=== PATIENT | female | born 1970 | race Two or more races ===

== ENCOUNTER 2021-06-26 11:39 | Emergency (ER) | payer MEDICAID, OTHER ==
[~2021-06-26] VITALS: Ht 160 cm; Wt 94.8 kg
--- NOTE | 2021-06-26 12:32 | NUR ---
BIBS SENT BY HER ONCOLOGIST. TO ER BED 6. AAOX4. NOT IN RESP DISTRESS. AMBULATORY. COMING IN FOR R ARM SWEELING, REDNESS AND PAIN SINCE TUESDAY. PAIN IS RATED 10/10 W/ LIMITED ROM D/T PAIN. PT HAD A PICC LINE WHICH WAS ALREADY REMOVED BECAUSE PT IS DOING CHEMO THERAPY. AWAITING MD FOR EVAL.
[2021-06-26 13:32] LABS: BASOPHILS % (AUTO) 0.6 % (0.0-2.0); EOSINOPHILS % (AUTO) 0.1 % (0.0-6.0); HEMATOCRIT 30 % (33-45); HEMOGLOBIN 9.7 g/dL (11.5-14.8); LYMPHOCYTES # (AUTO) 1.1 K/uL (0.8-4.8); MEAN CORPUSCULAR HGB CONC 32 g/dl (31.0-36.0); MEAN CORPUSCULAR VOLUME 78 fL (82-100); MONOCYTES % (AUTO) 0.5 % (2.0-12.0); NEUTROPHILS # (AUTO) 7.1 K/uL (1.8-8.9); NEUTROPHILS % (AUTO) 85.8 % (43.0-81.0); PLATELET COUNT (AUTO) 479 K/uL (150-450); RED BLOOD CELL COUNT(AUTO) 3.91 MIL/uL (4.0-5.2); WHITE BLOOD COUNT (AUTO) 8.3 K/uL (4.3-11.0)
[2021-06-26 13:39] LABS: CARBON DIOXIDE 27 mmol/L (21-32); CHLORIDE 105 mmol/L (98-107); CREATININE 0.5 mg/dL (0.6-1.3); GLUCOSE 100 mg/dL (74-106); POTASSIUM 3.8 mmol/L (3.5-5.1); SODIUM SERUM 142 mmol/L (136-145); UREA NITROGEN, BLOOD 15 mg/dL (7-18)
[2021-06-26 13:44] LABS: ALANINE AMINOTRANSFERASE 24 U/L (12-78); ALKALINE PHOSPHATASE 50 U/L (46-116); ASPARTATE AMINOTRANSFERASE 13 U/L (15-37); BILIRUBIN,DIRECT 0.1 mg/dL (0.0-0.2); BILIRUBIN,TOTAL 0.1 mg/dL (0.2-1.0); TOTAL PROTEIN, SERUM 6.7 g/dL (6.4-8.2)
[2021-06-26] MEDS ORDERED: HEPARIN INFUSION/D5W 500 ML IV PRN (14:00)
[2021-06-26] MEDS ORDERED: VANCOMYCIN 1 GM VIAL ONE (14:26)
[2021-06-26] MEDS ORDERED: VANCOMYCIN HCL 1 GM in IV D5W 260 ML IV ONE (14:30)
[2021-06-26] MEDS ORDERED: HEPARIN INFUSION/D5W 500 ML IV ONE (14:38)
[2021-06-26] MEDS ORDERED: HEPARIN SODIUM, PORCINE 5000 UNITS/1 ML VIAL ONE (14:38)
--- NOTE | 2021-06-26 14:46 | NUR ---
HEPARIN BOLUS ORDERED BY . ORDERD HEPARIN 7200 UNITS BOLUS AND CONTINOUS INFUSION OF 1600 UNITS/HR.
[2021-06-26] MEDS ORDERED: OMEP20CA15 PO (14:50)
[2021-06-26] MEDS ORDERED: DOCU100C36 PO (14:50)
[2021-06-26] MEDS ORDERED: DEXA4TAB PO (14:50)
[2021-06-26] MEDS ORDERED: HYDR-3972 PO (14:50)
[2021-06-26] MEDS ORDERED: HEPARIN SODIUM, PORCINE 5000 UNITS/1 ML VIAL IV ONE (15:00)
--- NOTE | 2021-06-26 15:05 | NUR ---
JEAN FIELD SALES REPRESENTATIVE FROM [facility] WORKING TO TRANSFER THE PATIENT TO [facility]. THE PATIENT IS OK WITH THE TRANSFER JEAN TEL [phone] FAX [phone] TO CLINICALS WITH ER MD TENORIO NOTE. PRIMARY NURSE MADE AWARE
--- NOTE | 2021-06-26 15:41 | NUR ---
COVID SWAB DONE AND SENT TO THE LAB
--- NOTE | 2021-06-26 16:09 | NUR ---
abbey, sister [phone]
--- NOTE | 2021-06-26 16:42 | NUR ---
called case finisher to follow up regarding transfer. Cheri Dunham
--- NOTE | 2021-06-26 16:43 | NUR ---
CALLED TO UPDATE CM JEAN FOR POSITIVE COVID RESULT. NEEDS UPDATED RESULT FAXED.
--- NOTE | 2021-06-26 17:00 | NUR ---
COVID RESULT FAXED.
--- NOTE | 2021-06-26 17:46 | NUR ---
BLANCA PENA CALLED FROM [facility] TO GIVE TRANSFER INFORMATION. PT ACCEPTED TO [facility] ER ROOM [address] UNDER THE CARE OF DR. CHERY. NUMBER FOR REPORT [phone]. ETA [phone] WITH [facility].
--- NOTE | 2021-06-26 18:38 | NUR ---
CALLED TO GIVE REPROT. ADVICED TO CALL BACK AFTER SHIFT D/T END OF SHIFT CHANGE.
[2021-06-26 19:11] VITALS: BP 115/68
--- NOTE | 2021-06-26 19:23 | NUR ---
REPORT GIVEN TO KRYSTAL GALVAN FOR [place] AT THE [facility]
--- NOTE | 2021-06-26 19:27 | NUR ---
[facility] AT BEDSIDE FOR PT TRANSPORT TO [facility] IN STABLE CONDITION. PT AMBULATED FROM BED TO [facility] ON [facility]. REPORT WAS GIVEN.
--- NOTE | 2021-06-26 19:30 | NUR ---
PT LEFT ON GURNEY WITH 2 EMT AT BEDSIDE ON STABLE CONDITION.
== END 2021-06-26 19:30 | disposition short-term general hospital (02) ==
LOC: ER 11:43
DX: I82.621 Acute embolism and thrombosis of deep veins of right upper extremity (principal); U07.1 COVID-19; I82.890 Acute embolism and thrombosis of other specified veins; C55 Malignant neoplasm of uterus, part unspecified; Z88.0 Allergy status to penicillin; Z79.899 Other long term (current) drug therapy; I51.7 Cardiomegaly
CPT/HCPCS: 36415; 71045; 80048; 80076; 83605; 84484; 85025; 85730; 87040 ×2; 87426; 93005; 93971; 96365; 96375; 96376; 99285; C9803; J1644 ×2; J3370; J7060

== ENCOUNTER 2022-10-06 12:40 | Inpatient (IN) | payer MEDICAID, OTHER ==
[~2022-10-06] VITALS: Ht 160 cm; Wt 90.3 kg
[~2022-10-06 12:40] MED LIST: DEXA4TAB PO; DOCU100C36 PO; HYDR-3972 PO; OMEP20CA15 PO
--- NOTE | 2022-10-06 12:50 | NUR ---
JENNIFER RA 77 FROM HOME,C/O CONSTIPATION
--- NOTE | 2022-10-06 12:59 | NUR ---
PT SEEN BY DR SANTOYO AT BEDSIDE
[2022-10-06] MEDS ORDERED: IV NS 0.9% 1,000 ML BAG IV ONE (13:00)
[2022-10-06] MEDS ORDERED: MORPHINE SULFATE INJ 2 MG/ML DISP.SYRIN IV ONE (13:00)
--- NOTE | 2022-10-06 13:00 | NUR ---
established iv line 20g left ac infusing
[2022-10-06] MEDS ORDERED: MORPHINE SULFATE INJ 4 MG/ML DISP.SYRIN ONE (13:06)
[2022-10-06] MEDS ORDERED: ONDANSETRON HCL/PF 4 MG/2 ML VIAL ONE (13:10)
--- NOTE | 2022-10-06 13:15 | NUR ---
medicated as ordered
[2022-10-06] MEDS ORDERED: IOHEXOL-350 100 ML VIAL IV ONE (13:22)
[2022-10-06] MEDS ORDERED: IV NS 0.9% 250 ML IV ONE (13:22)
[2022-10-06 13:29] LABS: BASOPHILS % (AUTO) 0.1 % (0.0-2.0); EOSINOPHILS % (AUTO) 0.3 % (0.0-6.0); HEMATOCRIT 38 % (33-45); HEMOGLOBIN 12.1 g/dL (11.5-14.8); LYMPHOCYTES # (AUTO) 0.6 K/uL (0.8-4.8); LYMPHOCYTES % (AUTO) 10.4 % (20.0-44.0); MEAN CORPUSCULAR HGB CONC 32 g/dl (31.0-36.0); MEAN CORPUSCULAR VOLUME 87 fL (82-100); MONOCYTES # (AUTO) 0.3 K/uL (0.1-1.30); MONOCYTES % (AUTO) 5.8 % (2.0-12.0); NEUTROPHILS % (AUTO) 83.4 % (43.0-81.0); PLATELET COUNT (AUTO) 224 K/uL (150-450); RED BLOOD CELL COUNT(AUTO) 4.34 MIL/uL (4.0-5.2)
[2022-10-06] MEDS ORDERED: ONDANSETRON HCL/PF - ER 4 MG/2 ML VIAL IV ONE (13:30)
[2022-10-06 13:53] LABS: ALANINE AMINOTRANSFERASE 38 U/L (12-78); ALKALINE PHOSPHATASE 120 U/L (46-116); ASPARTATE AMINOTRANSFERASE 53 U/L (15-37); BILIRUBIN,DIRECT 0.2 mg/dL (0.0-0.2); BILIRUBIN,TOTAL 0.6 mg/dL (0.2-1.0); CALCIUM, SERUM 9.6 mg/dL (8.5-10.1); CARBON DIOXIDE 31 mmol/L (21-32); CHLORIDE 90 mmol/L (98-107); GLUCOSE 111 mg/dL (74-106); LIPASE 186 U/L (73-393); POTASSIUM 3.6 mmol/L (3.5-5.1); SODIUM SERUM 130 mmol/L (136-145); TOTAL PROTEIN, SERUM 7.7 g/dL (6.4-8.2); UREA NITROGEN, BLOOD 16 mg/dL (7-18)
[2022-10-06] MEDS ORDERED: HYDROMORPHONE 1 MG/1 ML DISP.SYRIN IV ONE (14:00)
[2022-10-06] MEDS ORDERED: HYDROMORPHONE 1 MG/1 ML DISP.SYRIN ONE (14:01)
--- NOTE | 2022-10-06 15:04 | NUR ---
CALLED DR. CARRILLO [phone] SPEAKING WITH CAROL BARBER.
--- NOTE | 2022-10-06 15:10 | NUR ---
COVID SWAB COLLECTED AND SENT TO LAB
--- NOTE | 2022-10-06 15:12 | NUR ---
PT TAKEN TO RADIOLOGY FOR CT
--- NOTE | 2022-10-06 15:32 | NUR ---
PANEL ON-CALL PAGED
--- NOTE | 2022-10-06 15:40 | NUR ---
CONSENT FORM SIGNED BY PT FOR US-GUIDED THORACENTESIS; PLACED IN THE CHART
[2022-10-06] MEDS ORDERED: HYDROCODONE/APAP 5/325MG TABLET PO PRN (16:00)
--- NOTE | 2022-10-06 17:41 | NUR ---
GOT BED 119-1
--- NOTE | 2022-10-06 17:52 | NUR ---
REPORT GIVEN TO JEFE TONG READY TO TRANSFER
--- NOTE | 2022-10-06 19:41 | NUR ---
PT TRANSFERRED TO 119-1 [facility] ACLS PROTOCOL. WARM HANDOFF GIVEN TO KRYSTAL STANTON
[2022-10-06 20:00] VITALS: BP 117/74
--- NOTE | 2022-10-06 20:15 | NUR ---
PATIENT ADMITTED FROM ER 52Y/OLD FEMALE WITH A DX OF LARGE RT PLEURAL EFFUSION. WITH A HX OF METASTATIC CA, RT LUNG. TELE MONITOR PLACED. NO WOUNDS NOTED. DIAPER CHANGED. SAFETY MEASURES IN PLACE. KEEP HOB ELEVATED. BED IS LOCKED, IN LOWEST POSITION, SIDE RAILS UP X3, CALL LIGHT WITHIN REACH, WILL CONTINUE PLAN OF CARE.
[2022-10-06] MEDS: DOCUSATE SODIUM 100 MG CAPSULE PO SCH ×2 (20:36→20:41)
[2022-10-06] MEDS ORDERED: ZOLPIDEM TARTRATE 5 MG TABLET PO PRN (21:00)
[2022-10-06] MEDS ORDERED: Z GUARD REMEDY 4 OZ OINT TP PRN (21:00)
[2022-10-06] MEDS ORDERED: ACETAMINOPHEN 325 MG TABLET PO PRN (21:00)
[2022-10-06] MEDS: ENOXAPARIN SODIUM 40 MG/0.4 ML DISP.SYRIN SQ SCH (21:00)
[2022-10-06] MEDS: LACTULOSE 10 G/15 ML UDC (PYXIS) PO SCH (21:14)
[2022-10-06] MEDS: MORPHINE SULFATE INJ 4 MG/ML DISP.SYRIN IV PRN (21:15)
[2022-10-06] MEDS: ONDANSETRON HCL/PF 4 MG/2 ML VIAL IVP PRN (21:15)
[2022-10-07] VITALS: BP 114/71
[2022-10-07] MEDS: MORPHINE SULFATE INJ 4 MG/ML DISP.SYRIN IV PRN ×4 (01:37→19:01)
[2022-10-07] MEDS: LACTULOSE 10 G/15 ML UDC (PYXIS) PO SCH ×5 (02:31→22:06)
[2022-10-07 04:00] VITALS: BP 111/51
--- NOTE | 2022-10-07 05:25 | NUR ---
0525 Patient noted with no urine output, bladder scan done with more than 600ml of urine noted. EDITORIAL SPECIALIST Smith made aware with order to insert tejeda catheter and to collect urine for UA. Order noted and carried out.
--- NOTE | 2022-10-07 06:20 | NUR ---
Interiano catheter inserted at this time for urinary retention, no resistance noted, patient tolerated procedure well, more than 500 ml drained at this time, sill draining by gravity urine slightly dark yellow color.
--- NOTE | 2022-10-07 07:02 | NUR ---
PATIENT IN BED SLEEPING , NPO, PATIENT IS ON O2 3L VIA N/C , BREATHING NON LABORED NO SIGHS OF DISTRESS, O2 SAT 97 %.IV ACCESS LAC INTACT AND FLUSHING FREELY. BACK CATH IN PLACE DARNING CLEAR YELLOW URINE , ALL DUE MEDICATION GIVEN , ALL SAFETY MEASURES OBSERVED , BED IN AT LOWEST POSITION , BED SIDE RAILS ARE UP, CALL LIGHT WITHIN REACH , WILL ENDORSE TO NEXT SHIFT NURSE FOR CONTINUITY OF CARE.
[2022-10-07 07:27] LABS: BILIRUBIN,URINE 1+ (NEGATIVE); COLOR,URINE YELLOW (YELLOW); LEUKOCYTE ESTERASE ,URINE NEGATIVE (NEGATIVE); NITRITE, URINE NEGATIVE (NEGATIVE); PROTEIN,URINE TRACE mg/dl (NEGATIVE); UGLUCOSE NEGATIVE (NEGATIVE); UROBILINOGEN,URINE 0.2 EU/dL (0.2)
[2022-10-07 08:00] VITALS: BP 109/79
[2022-10-07 08:17] LABS: ALBUMIN 2.7 g/dL (3.4-5.0); BILIRUBIN,TOTAL 0.5 mg/dL (0.2-1.0); CREATININE 0.9 mg/dL (0.6-1.3); MAGNESIUM 2.2 mg/dL (1.8-2.4); PHOSPHORUS 3.5 mg/dL (2.5-4.9); POTASSIUM 3.7 mmol/L (3.5-5.1)
[2022-10-07 08:29] LABS: BASOPHILS % (AUTO) 0.3 % (0.0-2.0); EOSINOPHILS % (AUTO) 0.8 % (0.0-6.0); HEMATOCRIT 35 % (33-45); HEMOGLOBIN 11.5 g/dL (11.5-14.8); LYMPHOCYTES # (AUTO) 0.7 K/uL (0.8-4.8); LYMPHOCYTES % (AUTO) 12.1 % (20.0-44.0); MEAN CORPUSCULAR HGB CONC 33 g/dl (31.0-36.0); MEAN CORPUSCULAR VOLUME 88 fL (82-100); MONOCYTES # (AUTO) 0.4 K/uL (0.1-1.30); MONOCYTES % (AUTO) 6.2 % (2.0-12.0); NEUTROPHILS # (AUTO) 4.8 K/uL (1.8-8.9); NEUTROPHILS % (AUTO) 80.6 % (43.0-81.0); PLATELET COUNT (AUTO) 201 K/uL (150-450); RED BLOOD CELL COUNT(AUTO) 4.01 MIL/uL (4.0-5.2)
[2022-10-07] MEDS ORDERED: NA PHOS,M-B/NA PHOS,DI-BA 1 EA ENEMA RC PRN (10:30)
[2022-10-07] MEDS: DEXAMETHASONE 4 MG TABLET PO SCH (10:30)
[2022-10-07] MEDS: PANTOPRAZOLE 40 MG TABLET.DR PO SCH (10:31)
--- NOTE | 2022-10-07 11:12 | NUR ---
radiotelegraphist note per Josemanuel Solis dnp ok to start regular diet and ok to give fleet enema due to constipation
[2022-10-07 12:00] VITALS: BP 104/63
[2022-10-07] MEDS ORDERED: FUROSEMIDE 20 MG/2 ML VIAL IV ONE (12:00)
[2022-10-07] MEDS ORDERED: POTASSIUM CHLORIDE 20 MEQ TAB.PRT.SR PO ONE (14:30)
[2022-10-07 16:00] VITALS: BP 111/73
[2022-10-07] MEDS: DOCUSATE SODIUM 100 MG CAPSULE PO SCH (17:00)
--- NOTE | 2022-10-07 19:05 | NUR ---
RECEIVED THE PATIENT FROM THE OFF-GOING NURSE, PATIENT A/O X 4, C/O S/S PAIN/DISCOMFORT. PATIENT MEDICATED PER MD ORDERS, (SEE eMAR). PATIENT HAD (LT) FLANK THORACENTESIS @ THE BEDSIDE, EXPRESSED RELIEF AFTER THE PROCEDURE. PATIENT C/O CONSTIPATION, ENEMA ADMINISTERED WITH LIMITED EFFECT, CONTINUES TO REFUSE COLACE AND LACTULOSE, EDUCATED ON MEDICATION; NO CHANGE IN HER DECISION. REQUIRES 2 PERSON EXTENSIVE ASSISTANCE WITH TOILETING, BED MOBILITY AND TRANSFER TO THE BEDSIDE COMMODE. PATIENT HAS BILATERAL SCDS IN PLACE AND BACK CATHETER IN PLACE DRAINING LIGHT TARIK URINE. PATIENT IS STABLE ON THE BED. FALL PRECAUTION IN PLACE BEDSIDE REPORT GIVEN TO THE ON-COMING NURSE.
--- NOTE | 2022-10-07 19:25 | NUR ---
RN NOTES RECEIVED PT FOR CONTINUITY OF CARE. PATIENT A/OX4 IN NO S/SX OF ACUTE DISTRESS AT THIS TIME; CURRENTLY ON 3L OF 02 NC; WITH 02 SAT >95% AT THIS TIME.WITH IV ACCESS ON THE L AC#20 PATENT, INTACT AND FLUSHING WELL. ON REGULAR DIET. WILL ENSURE SAFETY MEASURES WITHIN THE SHIFT. PATIENT BED ALARM IS ON. HEAD OF BED ELEVATED. BED IS LOCKED, IN LOWEST POSITION AND SIDE RAILS UP. CALL LIGHT WITHIN REACH OF THE PATIENT. WILL CONTINUE TO MONITOR AND REASSESS FOR ANY CHANGES AND WILL CARRY OUT ANY ONGOING AND ACTIVE MD ORDER.
[2022-10-07 20:00] VITALS: BP 116/61
[2022-10-07] MEDS ORDERED: MAGNESIUM OXIDE 400 MG TABLET PO SCH (22:00)
[2022-10-07] MEDS: ENOXAPARIN SODIUM 40 MG/0.4 ML DISP.SYRIN SQ SCH (22:07)
[2022-10-08] VITALS: BP 119/74
[2022-10-08] MEDS: ONDANSETRON HCL/PF 4 MG/2 ML VIAL IVP PRN (00:46)
[2022-10-08] MEDS: MORPHINE SULFATE INJ 4 MG/ML DISP.SYRIN IV PRN ×3 (00:46→14:33)
[2022-10-08] MEDS: LACTULOSE 10 G/15 ML UDC (PYXIS) PO SCH ×2 (03:08→09:51)
[2022-10-08 04:00] VITALS: BP 134/59
--- NOTE | 2022-10-08 04:00 | NUR ---
RN NOTES PATIENT REMAINED TO BE IN NO SIGNS OF ACUTE RESPIRATORY DISTRESS , SAFE ENVIRONMENT MAINTAINED FOR PT. AM PATIENT CARE ASSISTANCE RENDERED. WILL CONTINUE TO MONITOR AND REASSESS FOR ANY CHANGES THROUGHOUT THE SHIFT.
[2022-10-08 05:36] LABS: BAND % (MANUAL) 2 % (0.0-5.0); EOSINOPHILS % (MANUAL) 1 % (0-4); LYMPHOCYTES % (MANUAL) 15 % (16-48); MONOCYTES % (MANUAL) 7 % (0-11.0); NEUTROPHILS % (MANUAL) 75 (42-76)
--- NOTE | 2022-10-08 06:41 | NUR ---
RN CLOSING NOTE: PATIENT REMAINS IN ROOM IN NO SIGNS OF RESPIRATORY DISTRESS, PATIENT STILL ON 3L OF 02 VIA NC ;TOLERATING WELL SATURATING @ >95% SP02. SAFETY MEASURES IMPLEMENTED, BED IN LOWEST POSITION, LOCKED, SIDE RAILS UP, CALL LIGHT WITHIN REACH. ALL NEEDS AND ORDERS ADDRESSED DURING THE SHIFT. IV ACCESS MAINTAINED INTACT, SECURED AND FLUSHING WELL. ALL DUE MEDS GIVEN ORDERED & SCHEDULED ; PATIENT TOLERATED WELL. PATIENT KEPT CLEAN AND COMFORTABLE WITHIN THE SHIFT. PATIENT ENDORSED TO INCOMING SHIFT RN WITH STABLE VITAL SIGN AND FOR CONTINUITY OF CARE. Addendum: 10/08/22 at 0642 by DALJIT BALES RN ABLE TO PASS BM DURING THE SHIFT
[2022-10-08 08:00] VITALS: BP 121/66
[2022-10-08] MEDS: DOCUSATE SODIUM 100 MG CAPSULE PO SCH (09:00)
[2022-10-08] MEDS: PANTOPRAZOLE 40 MG TABLET.DR PO SCH (09:52)
[2022-10-08] MEDS: DEXAMETHASONE 4 MG TABLET PO SCH (09:52)
[2022-10-08 12:00] VITALS: BP 119/74
[2022-10-08] MEDS ORDERED: CT SWABBABLE VALVE TRANS SET 1 EA INFUS.SET MC ONE (12:53)
[2022-10-08] MEDS ORDERED: IOHEXOL-350 100 ML VIAL IV ONE (12:53)
--- NOTE | 2022-10-08 15:45 | NUR ---
RECEIVED THE PATIENT FROM THE OFF-GOING NURSE, PATIENT A/O X 4, C/O PAIN/DISCOMFORT; PATIENT MEDICATED PER MD ORDERS, (SEE eMAR). PATIENT HAS (LT) UPPER ARM AV FISTULA, SITE WNL; DRY PROTECTIVE PRESSURE DRESSING IN PLACE. PATIENT TRANSFUSED WITH 1 UNIT PRBC, NO TRANSFUSION REACTION OBSERVED AND SCHEDULED FOR DISCHARGE HOME ROUTINE; DISCHARGE DELAYED, BECAUSE SHE WAS UNABLE TO GET IN TOUCH WITH HER RIDE HOME, BEING PROVIDED BY A FRIEND. ANGIO-CATH REMOVED, SITE WNL AND DRY PROTECTIVE/PRESSURE DRESSING IN PLACE. PATIENT EDUCATED ON THE IMPORTANCE FOLLOWING HER SCHEDULED HEMODIALYSIS TREATMENT, VERBALIZED UNDERSTANDING . DISCHARGE INSTRUCTIONS PROVIDED PATIENT PICKED UP BY HER FRIEND, LEFT STABLE AND AMBULATORY TO HER RIDE OUTSIDE.
== END 2022-10-08 16:34 | disposition home or self-care (01) | DRG 136 ==
LOC: ER 12:44 → TELE1 18:38
PROVIDERS: ADMIT Nurse Practitioner Acute Care; ATTEND Nurse Practitioner Acute Care
PROC: 0W993ZZ Drainage of Right Pleural Cavity, Percutaneous Approach (ICD-10-PCS; principal; 2022-10-07)
DX: C78.01 Secondary malignant neoplasm of right lung (principal); E87.20 Acidosis, unspecified; C79.51 Secondary malignant neoplasm of bone; C78.7 Secondary malignant neoplasm of liver and intrahepatic bile duct; J91.0 Malignant pleural effusion; E87.1 Hypo-osmolality and hyponatremia; E88.09 Other disorders of plasma-protein metabolism, not elsewhere classified; C53.9 Malignant neoplasm of cervix uteri, unspecified; Z20.822 Contact with and (suspected) exposure to COVID-19; K59.00 Constipation, unspecified; Z86.718 Personal history of other venous thrombosis and embolism; Z79.01 Long term (current) use of anticoagulants; Z88.0 Allergy status to penicillin; Z79.899 Other long term (current) drug therapy; J98.11 Atelectasis; M84.48XA Pathological fracture, other site, initial encounter for fracture; R60.0 Localized edema; I87.1 Compression of vein
CPT/HCPCS: 36415; 71045-TC; 71250-TC; 76604-TC; 80048-TC; 80053-TC; 80061-TC; 80076-TC; 83605-TC; 83690-TC; 83735-TC; 84100-TC; 85025-TC; 85730-TC; 93970-TC; 94799-TC; C9803; G0378; J1170; J1650; J1940; J2270; J2405; J7050; J8540; Q9967